=== PATIENT | male | born 1975 | race Caucasian/White ===

== ENCOUNTER → 2022-04-28 | Outpatient (CLI) | payer MEDICAID | END | disposition home or self-care (01) | LOC: RADPV 13:51 | PROVIDERS: ATTEND Internal Medicine | DX: Z13.820 Encounter for screening for osteoporosis (principal); M85.88 Other specified disorders of bone density and structure, other site; G80.9 Cerebral palsy, unspecified; G40.901 Epilepsy, unspecified, not intractable, with status epilepticus | CPT/HCPCS: 77080 ==